=== PATIENT | female | born 1985 | race African-American/Black ===

== ENCOUNTER 2018-07-28 09:04 | Emergency (ER) | payer OTHER ==
[2018-07-28 09:20] VITALS: TEMP 98.7; BMI 43.9
--- NOTE | 2018-07-28 10:31 | PDOC ---
History of Present Illness - General Chief Complaint: Blood Pressure Problem Stated Complaint: Blood Pressure Problem Time Seen by Provider: 07/28/18 09:41 - History of Present Illness Initial Comments: 07/28/18 10:25 32 F with no PMH presents to ED with intermittent numbness to L arm, epigastric pain, and elevated BP. Pt states that her symptoms began yesterday afternoon with pain in her LUQ. Pt states that it is similar to the pain she had when she was diagnosed with H pylori. Pt denies N/V. Denies F/C. Denies diarrhea/ constipation. Pt also reports intermittent numbness going down her L arm. Denies weakness in that arm. Denies neck pain. States that she notices it when she sleeps. Does not currently have any numbness. Pt also reports elevated BP today. She does not know what her baseline BP is but states that at work, it was found to be 160/90. Pt endorses significant stress in her life currently. Denies CP/SOB. Denies YEAGER. Denies leg swelling. Past History - Past Medical History Allergies/Adverse Reactions: Allergies Allergy/AdvReac Type Severity Reaction Status Date / Time No Known Allergies Allergy Verified 08/22/15 13:46 Home Medications: Ambulatory Orders Cyanocobalamin/Folic Acid [Vitamin C49-Zhrpt Acid Tablet] 1 each PO DAILY COPD: No DVT: No - Immunization History Immunization Up to Date: No - Suicide/Smoking/Psychosocial Hx Smoking History: Never smoked Information on smoking cessation initiated: No Hx Alcohol Use: No Drug/Substance Use Hx: No Substance Use Type: None Review of Systems - Review of Systems Comments:: 07/28/18 10:31 GENERAL/CONSTITUTIONAL: No fever or chills. No weakness. HEAD, EYES, EARS, NOSE AND THROAT: No change in vision. No ear pain or discharge. No sore throat. CARDIOVASCULAR: No chest pain or shortness of breath. RESPIRATORY: No cough, wheezing, or hemoptysis. GASTROINTESTINAL: +epigastric pain, No nausea, vomiting, diarrhea or constipation. GENITOURINARY: No dysuria, frequency, or change in urination. MUSCULOSKELETAL: No joint or muscle swelling or pain. No neck or back pain. SKIN: No rash NEUROLOGIC: + LUE numbness, No headache, vertigo, loss of consciousness, or change in strength ENDOCRINE: No increased thirst. No abnormal weight change. HEMATOLOGIC/LYMPHATIC: No anemia, easy bleeding, or history of blood clots. ALLERGIC/IMMUNOLOGIC: No hives or skin allergy. *Physical Exam - Vital Signs Last Vital Signs Temp Pulse Resp BP Pulse Ox 98.7 F 86 16 148/97 95 07/28/18 09:12 07/28/18 09:12 07/28/18 09:12 07/28/18 10:10 07/28/18 09:12 - Physical Exam Comments: 07/28/18 10:32 "GENERAL: Awake, alert, and fully oriented, in no acute distress. HEAD: No signs of trauma EYES: PERRLA, EOMI, sclera anicteric, conjunctiva clear ENT: Auricles normal inspection, hearing grossly normal, nares patent, oropharynx clear without exudates. Moist mucosa NECK: Nontender, no stepoffs, Normal ROM, supple, no lymphadenopathy, JVD, or masses LUNGS: Breath sounds equal, clear to auscultation bilaterally. No wheezes, and no crackles HEART: Regular rate and rhythm, normal S1 and S2, no murmurs, rubs or gallops ABDOMEN: Soft, nontender, normoactive bowel sounds. No guarding, no rebound. No masses EXTREMITIES: Normal range of motion, no edema. No clubbing or cyanosis. No cords, erythema, or tenderness NEUROLOGICAL: Cranial nerves II through XII intact. 5/5 strength and sensation in all extremities, Normal speech, normal gait, normal cerebellar function SKIN: Warm, Dry, normal turgor, no rashes or lesions noted. Heart Score/ECG Review - ECG Impressions Comment:: 07/28/18 10:32 NSR, no DELFINA/STDs, intervals wnl, axis wnl, rate 67 ED Treatment Course - LABORATORY CBC & Chemistry Diagram: 07/28/18 10:45 07/28/18 10:45 Medical Decision Making - Medical Decision Making 07/28/18 10:32 32 F with intermittent LUE numbness, epigastric pain, and elevated BP. Pt with no neuro deficits at this time. Benign abdominal exam. Will r/o ACS with single trop, though EKG is unimpressive. - Labs, trop - F/u PMD 07/28/18 11:36 Labs wnl Repeat BP now normal without intervention Pt is well appearing, with normal vitals. Clinically stable for DC at this time. I discussed the physical exam findings, ancillary test results and final diagnoses with the patient. I answered all of the patient's questions. The patient was satisfied with the care received and felt comfortable with the discharge plan and treatment plan. The patient agrees to follow up with the primary care physician within 24-72 hours. *DC/Admit/Observation/Transfer Diagnosis at time of Disposition: Hypertension, Paresthesia, Gastritis - Discharge Dispostion Disposition: HOME - Referrals Referrals: Los Santos DO [Staff Physician] - - Patient Instructions Printed Discharge Instructions: DI for High Blood Pressure Additional Instructions: Follow up with your primary doctor TODAY regarding your blood pressure. Uncontrolled blood pressure can eventually lead to kidney disease, heart disease , or other serious illness. Follow up with your GI doctor for further evaluation of your abdominal pain. Call the number provided to make an appointment with a neurologist for evaluation of your arm numbness. If you experience any worsening pain, weakness, numbness, or any other concerning symptoms, return to the ER immediately. - Post Discharge Activity - Attestations Physician Attestion: 07/28/18 11:39 I, Dr. Yuriy Fink MD, attest that this document has been prepared under my direction and personally reviewed by me in its entirety. I further attest, that it accurately reflects all work, treatment, procedures and medical decision -making performed by me.
[2018-07-28 10:57] LABS: BASO % 0.4 % (0-2.0); EOS % 0.4 % (0-4.5); HEMATOCRIT 36.6 % (32.4-45.2); HEMOGLOBIN 11.4 GM/dL (10.7-15.3); LYMPH % 25.5 % (8-40); MCH 22.9 pg (25.7-33.7); MEAN CELL VOLUME 73.7 fl (80-96); MEAN PLT VOLUME 7.8 fl (7.5-11.1); NEUT % 63.7 % (42.8-82.8); PLATELET COUNT 276 K/MM3 (134-434); RBC 4.97 M/mm3 (3.60-5.2); RDW 14.7 % (11.6-15.6); WHITE BLOOD COUNT 5.9 K/mm3 (4.0-10.0)
[2018-07-28 11:31] LABS: ALBUMIN 3.6 g/dl (3.4-5.0); ALK PHOS 65 U/L (45-117); ANION GAP 3 MMOL/L (8-16); BILIRUBIN,TOTAL 0.3 mg/dL (0.2-1); BLOOD UREA NITROGEN 16 mg/dL (7-18); CALCIUM 8.7 mg/dL (8.5-10.1); CHLORIDE 109 mmol/L (98-107); CO2 25 mmol/L (21-32); CREATININE 0.7 mg/dL (0.55-1.3); GLUCOSE,RANDOM 97 mg/dL (74-106); SGOT/AST 9 U/L (15-37); SGPT/ALT 18 U/L (13-61); SODIUM 136 mmol/L (136-145); TOT PROT 7.4 g/dl (6.4-8.2)
[2018-07-28 11:37] VITALS: BP 116/68; PULSE 64
--- NOTE | 2018-07-28 13:04 | EKG ---
Test Reason : Blood Pressure : / mmHG Vent. Rate : 067 BPM Atrial Rate : 067 BPM P-R Int : 170 ms QRS Dur : 090 ms QT Int : 382 ms P-R-T Axes : 047 048 018 degrees QTc Int : 403 ms NORMAL SINUS RHYTHM NORMAL ECG Confirmed by Senthil Horton MD ([id number]) on 07/28/2018 1:04:39 PM Referred By: Confirmed By:Senthil Horton MD
== END 2018-07-28 11:45 | disposition home or self-care (01) ==
LOC: JER 09:04
DX: I10 Essential (primary) hypertension (principal); K29.70 Gastritis, unspecified, without bleeding; R20.2 Paresthesia of skin
CPT/HCPCS: 36415; 80053; 82550; 84484; 85025; 93005; 93010; 99284-25